=== PATIENT | female | born 1990 | race Caucasian/White ===

== ENCOUNTER 2016-10-02 14:31 | Emergency (ER) | payer OTHER ==
[~2016-10-02] VITALS: Wt 60.5 kg
[2016-10-02] MEDS ORDERED: AMOX1TAB9 PO (14:49)
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
[2016-10-02] MEDS ORDERED: DIPHTH/TET/ACEL PERTUSS (ADULT) 0.5 ML VIAL IM* ONE (15:00)
== END 2016-10-02 15:06 | disposition home or self-care (01) ==
LOC: FTE 14:31
DX: S51.851A Open bite of right forearm, initial encounter (principal); W50.3XXA Accidental bite by another person, initial encounter; Y92.9 Unspecified place or not applicable; Z23 Encounter for immunization
CPT/HCPCS: 90715; Z7502